=== PATIENT | male | born 1935 | race Caucasian/White ===

== ENCOUNTER 2016-03-27 10:37 | Day surgery (SDC) | payer MEDICARE ==
--- NOTE | ~2016-03-27 | OP ---
Record Of Operation [facility] [address] [place]. 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 PROCEDURE PERFORMED: Left upper extremity fistula banding. SURGEON: Christian Sevilla M.D. ANESTHESIA: Local MAC. COMPLICATIONS: None. INDICATION FOR PROCEDURE: Secondary to this very pleasant 80-year-old gentleman presenting with hyperfunctioning left upper extremity AV fistula. This was a good candidate for banding procedure. Recommendations were agreed upon and a consent was given. DETAILS OF PROCEDURE: The patient was brought to the endovascular operating room, placed in supine position, prepped and draped in routine sterile fashion with attention to the left upper extremity. An incision was then made after appropriate local MAC anesthesia in the antecubital region. Dissection proceeded down to the proximal fistula. A 2.5 cm segment of the fistula was then banded using 5-0 Prolene on a C1 needle running continuous stitch in a running style banding procedure. This improved the pulsatility of the radial artery and maintained flow in the fistula. With this completed, the deep layers were then closed with Vicryl, Monocryl for the skin. Steri-Strips and dressings were applied. The patient tolerated the procedure well. He was then discharged to recovery in stable condition. BONNY/MICHAELLE Christian Sevilla M.D. / [id number] CC: Jens Melvin M.D.
[~2016-03-27 10:37] MED LIST: ASAB PO; ELIQUIS 2.5 MG2.5 MG PO; FLOMAX4 PO; IMDUR120 PO; L40 PO; LANTUS SC; LIPITOR40 PO; MULTIPLE VIT PO; MULTIVIT/MIN PO; NORV10 PO; NOVOPEN SC; PHOSLO PO; PROSCAR5 PO; VITAMIN D31000 UNIT PO
[2016-03-27 12:08] LABS: HEMATOCRIT 36.1 % (40.0-51.0); HEMOGLOBIN 11.7 g/dL (13.6-17.8)
[2016-03-27 12:19] LABS: BUN (BLOOD UREA NITROGEN) 25 MG/DL (6-23); CALCIUM, SERUM 9.1 MG/DL (8.5-10.4); CHLORIDE, SERUM 99 MMOL/L (96-112); CO2 (CARBON DIOXIDE) 27 MMOL/L (24-34); CREATININE 5.66 MG/DL (0.70-1.30); GFR AFRICAN AMERICAN 10 ML/MIN (>=60); GFR NON AFRICAN AMERICAN 9 ML/MIN (>=60); GLUCOSE, SERUM 154 MG/DL (60-99); POTASSIUM, SERUM 4.1 MMOL/L (3.5-5.3); SODIUM, SERUM 140 MMOL/L (135-148)
[2016-08-24] MEDS ORDERED: PRESERVISION A1 EACH PO (23:38)
[2016-08-24] MEDS ORDERED: NITROSTAT0.4 MG SL (23:38)
[2016-08-24] MEDS ORDERED: NORV10 PO (23:38)
[2016-08-24] MEDS ORDERED: PROSCAR5 PO (23:38)
[2016-08-24] MEDS ORDERED: VITAMIN D31000 UNIT PO (23:39)
[2016-08-24] MEDS ORDERED: FLOMAX4 PO (23:39)
[2016-08-24] MEDS ORDERED: LANTUSCART SC (23:40)
[2016-08-24] MEDS ORDERED: NOVOPEN SC (23:40)
[2016-08-24] MEDS ORDERED: IMDUR120 PO (23:41)
[2016-08-24] MEDS ORDERED: PREV15 PO (23:41)
[2016-08-24] MEDS ORDERED: ASAB PO (23:41)
[2016-08-24] MEDS ORDERED: LIPITOR20 PO (23:42)
[2016-08-24] MEDS ORDERED: MULTIVIT/MIN PO (23:42)
[2016-08-24] MEDS ORDERED: PHOSLO PO (23:43)
[2016-08-24] MEDS ORDERED: L40 PO (23:43)
[2016-08-24] MEDS ORDERED: LOVAZA1 GM PO (23:43)
[2016-08-24] MEDS ORDERED: UNKNOWN ANTIBIOTIC PO (23:44)
[2016-08-24] MEDS ORDERED: ASPERCREME TOP (23:45)
[2016-08-24] MEDS ORDERED: LIDO TOP (23:45)
[2016-08-24] MEDS ORDERED: BETADINE SOLUTIO4 OZ TOP (23:45)
[2016-08-24] MEDS ORDERED: ELIQUIS 2.5 MG2.5 MG PO (23:47)
[2016-08-27] MEDS ORDERED: PRESERVISION A1 EAC1 PO (15:36)
[2016-08-27] MEDS ORDERED: FISH-EPA1000 MG PO (15:36)
[2016-08-27] MEDS ORDERED: PREV30 PO (15:37)
[2016-08-27] MEDS ORDERED: IBU600 PO (15:38)
== END 2016-03-27 17:01 | disposition home or self-care (01) ==
LOC: SDC 10:37
PROVIDERS: Specialist
PROC: 03V Upper Arteries, Restriction (ICD-10-PCS; principal; 2016-03-27 14:00)
DX: T82.318A Breakdown (mechanical) of other vascular grafts, initial encounter (principal); Z88.5 Allergy status to narcotic agent; E11.22 Type 2 diabetes mellitus with diabetic chronic kidney disease; N18.6 End stage renal disease; I65.23 Occlusion and stenosis of bilateral carotid arteries; I13.11 Hypertensive heart and chronic kidney disease without heart failure, with stage 5 chronic kidney disease, or end stage renal disease; Z99.2 Dependence on renal dialysis; Z79.02 Long term (current) use of antithrombotics/antiplatelets; Z98.890 Other specified postprocedural states
CPT/HCPCS: 80048; 82962; 85014; 85018; 93005; J0690; J3010

== ENCOUNTER 2016-05-30 11:02 | Emergency (ER) | payer MEDICARE ==
[2016-05-30 11:36] LABS: BASOPHILS 0.9 %; BASOPHILS ABSOLUTE 0.06 10/3/uL (0.0-0.16); EOSINOPHILS ABSOLUTE 0.13 10/3/uL (0.0-0.53); HEMATOCRIT 34.4 % (40.0-51.0); HEMOGLOBIN 11.2 g/dL (13.6-17.8); LYMPHOCYTES 21.2 %; LYMPHOCYTES ABSOLUTE 1.38 10/3/uL (0.67-4.30); MEAN CORPUS HGB CONC 32.6 g/dL (32.0-36.0); MEAN PLATELET VOLUME 9.7 fL (9.2-13.0); MONOCYTES 5.7 %; MONOCYTES ABSOLUTE 0.37 10/3/uL (0.21-1.20); NEUTROPHILS 70.2 %; NEUTROPHILS ABSOLUTE 4.56 10/3/uL (2.02-8.40); PLATELET COUNT 163 10/3/uL (150-400); RBC DISTRIBUTION WIDTH 14.1 % (12.0-16.0); RED CELL COUNT 3.71 10/6/uL (4.7-6.1); WHITE BLOOD CELLS 6.5 10/3/uL (4.5-10.5)
[2016-05-30 11:38] LABS: MANUAL DIFF NO %; MEAN CORPUSCULAR HEMOGLOB 30.2 pg (26.0-34.0); MEAN CORPUSCULAR VOLUME 92.7 fL (80-100)
[2016-05-30 11:54] LABS: A/G RATIO 0.8 (0.7-1.9); ALBUMIN 3.3 G/DL (3.5-5.0); ALKALINE PHOSPHATASE 103 U/L (45-117); BUN (BLOOD UREA NITROGEN) 51 MG/DL (6-23); CALCIUM, SERUM 8.9 MG/DL (8.5-10.4); CHLORIDE, SERUM 100 MMOL/L (96-112); CO2 (CARBON DIOXIDE) 25 MMOL/L (24-34); CREATININE 9.27 MG/DL (0.70-1.30); GFR AFRICAN AMERICAN 5 ML/MIN (>=60); GFR NON AFRICAN AMERICAN 5 ML/MIN (>=60); GLOBULIN 4.4 G/DL (2.5-4.1); GLUCOSE, SERUM 210 MG/DL (60-99); POTASSIUM, SERUM 4.2 MMOL/L (3.5-5.3); SGOT(AST) 13 U/L (5-40); SGPT(ALT) 15 U/L (5-65); SODIUM, SERUM 139 MMOL/L (135-148); TOTAL BILIRUBIN 0.6 MG/DL (0-1.2); TOTAL PROTEIN 7.7 G/DL (6.0-8.5); TROPONIN I 0.03 NG/ML (<0.05)
[2016-08-24] MEDS ORDERED: NITROSTAT0.4 MG SL (23:38)
[2016-08-24] MEDS ORDERED: NORV10 PO (23:38)
[2016-08-24] MEDS ORDERED: PRESERVISION A1 EACH PO (23:38)
[2016-08-24] MEDS ORDERED: PROSCAR5 PO (23:38)
[2016-08-24] MEDS ORDERED: VITAMIN D31000 UNIT PO (23:39)
[2016-08-24] MEDS ORDERED: FLOMAX4 PO (23:39)
[2016-08-24] MEDS ORDERED: NOVOPEN SC (23:40)
[2016-08-24] MEDS ORDERED: LANTUSCART SC (23:40)
[2016-08-24] MEDS ORDERED: ASAB PO (23:41)
[2016-08-24] MEDS ORDERED: IMDUR120 PO (23:41)
[2016-08-24] MEDS ORDERED: PREV15 PO (23:41)
[2016-08-24] MEDS ORDERED: MULTIVIT/MIN PO (23:42)
[2016-08-24] MEDS ORDERED: LIPITOR20 PO (23:42)
[2016-08-24] MEDS ORDERED: PHOSLO PO (23:43)
[2016-08-24] MEDS ORDERED: L40 PO (23:43)
[2016-08-24] MEDS ORDERED: LOVAZA1 GM PO (23:43)
[2016-08-24] MEDS ORDERED: UNKNOWN ANTIBIOTIC PO (23:44)
[2016-08-24] MEDS ORDERED: BETADINE SOLUTIO4 OZ TOP (23:45)
[2016-08-24] MEDS ORDERED: ASPERCREME TOP (23:45)
[2016-08-24] MEDS ORDERED: LIDO TOP (23:45)
[2016-08-24] MEDS ORDERED: ELIQUIS 2.5 MG2.5 MG PO (23:47)
[2016-08-27] MEDS ORDERED: PRESERVISION A1 EAC1 PO (15:36)
[2016-08-27] MEDS ORDERED: FISH-EPA1000 MG PO (15:36)
[2016-08-27] MEDS ORDERED: PREV30 PO (15:37)
[2016-08-27] MEDS ORDERED: IBU600 PO (15:38)
== END 2016-05-30 13:48 | disposition home or self-care (01) ==
LOC: ER 11:02
PROVIDERS: Emergency Medicine
DX: I95.9 Hypotension, unspecified (principal); E11.22 Type 2 diabetes mellitus with diabetic chronic kidney disease; N18.9 Chronic kidney disease, unspecified; Z99.2 Dependence on renal dialysis; Z88.5 Allergy status to narcotic agent; Z79.4 Long term (current) use of insulin; Z79.899 Other long term (current) drug therapy; Z79.82 Long term (current) use of aspirin
CPT/HCPCS: 80053; 84484; 85025; 93005; 99285